=== PATIENT | female | born 1950 | race Caucasian/White ===

== ENCOUNTER → 2020-08-08 | Outpatient (CLI) | payer MEDICARE, OTHER ==
[~2020-08-08] MED LIST: ADULT LOW DOSE81 MG PO; ATORVASTATIN CA40 MG PO; CARVEDILOL12.5 MG PO; COREG 3.125M3.125 MG PO; COUMADIN7.5 MG PO; COZAAR 25MG TAB25 MG PO; ECOTRIN81 MG PO; FERROUS SULFAT325 M2 PO; FUROSEMIDE40 MG PO; HYDROXYZINE HCL25 MG PO; IRON18 MG PO; ISOSORBIDE MONO30 MG PO; LASIX20 MG PO; LIPITOR TAB 2020 MG PO; LOPRESSOR 50 MG50 MG PO; MOBIC7.5 MG PO; NITROGLYCERIN0.4 MG SL; NITROSTAT0.4 MG SL; RANOLAZINE ER1000 MG PO; SERTRALINE HCL100 MG PO; THERAGRAN TAB1 EA PO
[2020-08-08 12:32] LABS: HEMOGLOBIN 8.4 gm/dl (12.3-15.3); RED BLOOD COUNT 3.27 M/UL (4.00-5.10)
== END ==
LOC: LAB 11:45
PROVIDERS: Internal Medicine Cardiovascular Disease
DX: R94.39 Abnormal result of other cardiovascular function study (principal); I20.9 Angina pectoris, unspecified; I50.32 Chronic diastolic (congestive) heart failure; Z95.2 Presence of prosthetic heart valve; Z98.890 Other specified postprocedural states; Z20.822 Contact with and (suspected) exposure to COVID-19
CPT/HCPCS: 36415; 71046; 80048; 85025; U0003

== ENCOUNTER → 2020-08-12 | Outpatient (CLI) | payer MEDICARE, OTHER | LOC: CATH 08:32 | DX: I20.8 Other forms of angina pectoris (principal); I38 Endocarditis, valve unspecified; I49.5 Sick sinus syndrome; I11.0 Hypertensive heart disease with heart failure; I50.9 Heart failure, unspecified; Z98.890 Other specified postprocedural states; Z88.6 Allergy status to analgesic agent; Z88.5 Allergy status to narcotic agent; Z79.82 Long term (current) use of aspirin; Z79.899 Other long term (current) drug therapy | CPT/HCPCS: 99152; 99153; C1751; C1769; J1644; J2250; J7030; Q9965 ==

== ENCOUNTER → 2020-09-12 | Day surgery (SDC) | payer MEDICARE, OTHER | END | disposition home or self-care (01) | LOC: OR 06:25 | DX: K29.50 Unspecified chronic gastritis without bleeding (principal); K31.9 Disease of stomach and duodenum, unspecified; D64.9 Anemia, unspecified; K44.9 Diaphragmatic hernia without obstruction or gangrene; F41.9 Anxiety disorder, unspecified; Z95.0 Presence of cardiac pacemaker; K57.30 Diverticulosis of large intestine without perforation or abscess without bleeding; I11.0 Hypertensive heart disease with heart failure; I50.42 Chronic combined systolic (congestive) and diastolic (congestive) heart failure; E78.5 Hyperlipidemia, unspecified; Z95.3 Presence of xenogenic heart valve; Z88.8 Allergy status to other drugs, medicaments and biological substances; I20.9 Angina pectoris, unspecified; Z79.82 Long term (current) use of aspirin; Z98.51 Tubal ligation status; Z20.822 Contact with and (suspected) exposure to COVID-19; Z95.5 Presence of coronary angioplasty implant and graft; E61.1 Iron deficiency | CPT/HCPCS: J2704; J7030 ==

== ENCOUNTER → 2021-01-06 | Outpatient (CLI) | payer MEDICARE, OTHER | LOC: CT 13:00 | DX: R93.422 Abnormal radiologic findings on diagnostic imaging of left kidney (principal); N28.1 Cyst of kidney, acquired | CPT/HCPCS: 74170; Q9967 ==

== ENCOUNTER → 2021-07-14 | Outpatient (CLI) | payer MEDICARE, OTHER | LOC: HEART 5 14:59 | DX: I20.9 Angina pectoris, unspecified (principal); R07.9 Chest pain, unspecified; R06.02 Shortness of breath; R60.9 Edema, unspecified; I50.9 Heart failure, unspecified; I27.20 Pulmonary hypertension, unspecified; Z95.2 Presence of prosthetic heart valve | CPT/HCPCS: 93306 ==

== ENCOUNTER → 2021-10-26 | Outpatient (CLI) | payer MEDICARE, OTHER ==
[2021-10-26 10:06] LABS: RED BLOOD COUNT 2.48 M/UL (4.00-5.10); WHITE BLOOD COUNT 2.5 K/UL (4.5-11.0)
[2021-10-26 10:36] LABS: HEMOGLOBIN 6.8 gm/dl (12.3-15.3)
[2021-10-30 00:07] LABS: THROMBIN TIME 18.9 sec (0.0-23.0)
== END ==
LOC: US 09:00
PROVIDERS: Internal Medicine
DX: D64.9 Anemia, unspecified (principal); K80.20 Calculus of gallbladder without cholecystitis without obstruction; K65.8 Other peritonitis
CPT/HCPCS: 36415; 76705; 82728; 83540; 83550; 85025; 85610; 85670

== ENCOUNTER → 2021-10-28 | Outpatient (CLI) | payer MEDICARE, OTHER ==
[~2021-10-28] VITALS: Ht 160 cm; Wt 77.1 kg
[2021-10-28 10:12] LABS: RED BLOOD COUNT 2.58 M/UL (4.00-5.10)
[2021-10-28 10:38] LABS: WHITE BLOOD COUNT 4.1 K/UL (4.5-11.0)
[2021-10-28 10:39] LABS: HEMOGLOBIN 6.7 gm/dl (12.3-15.3)
== END ==
LOC: OPSV 10-27 09:00
PROVIDERS: Nurse Practitioner Family
DX: D64.9 Anemia, unspecified (principal)
CPT/HCPCS: 36415; 36430; 85027; 86850; 86900; 86901; 86920; J7050; P9016

== ENCOUNTER → 2021-12-03 | Day surgery (SDC) | payer MEDICARE, OTHER ==
[~2021-12-03] MED LIST changes: -FUROSEMIDE40 MG PO; +HYDROCODON-ACE1 EAC4 PO; -ISOSORBIDE MONO30 MG PO; +ISOSORBIDE MONO60 MG PO; +METOPROLOL TART25 MG PO
[2021-12-03 07:15] LABS: HEMOGLOBIN 8.5 gm/dl (12.3-15.3); RED BLOOD COUNT 2.92 M/UL (4.00-5.10); WHITE BLOOD COUNT 5.1 K/UL (4.5-11.0)
== END | disposition home or self-care (01) ==
LOC: OR 06:18
PROVIDERS: Surgery
DX: K80.10 Calculus of gallbladder with chronic cholecystitis without obstruction (principal); I50.42 Chronic combined systolic (congestive) and diastolic (congestive) heart failure; E78.5 Hyperlipidemia, unspecified; Z86.73 Personal history of transient ischemic attack (TIA), and cerebral infarction without residual deficits; Z88.6 Allergy status to analgesic agent; Z88.8 Allergy status to other drugs, medicaments and biological substances; Z79.82 Long term (current) use of aspirin
CPT/HCPCS: 36415; 85025; 86850; 86900; 86901; C1729; J0690; J1100; J2001; J2405; J2704; J3010

== ENCOUNTER 2021-12-19 19:22 | Inpatient (IN) | payer MEDICARE, OTHER ==
[~2021-12-19] VITALS: Ht 160 cm; Wt 83.6 kg
[~2021-12-19 19:22] MED LIST changes: -IRON18 MG PO; +IRON325 M1 PO
[2021-12-19 23:21] LABS: HEMOGLOBIN 8.5 gm/dl (12.3-15.3); RED BLOOD COUNT 2.95 M/UL (4.00-5.10); WHITE BLOOD COUNT 5.1 K/UL (4.5-11.0)
[2021-12-19 23:49] LABS: BUN/CREATININE RATIO 24 (0-10)
[2021-12-20] MEDS ORDERED: HYDROCODON-ACE1 EAC4 PO (10:11)
[2021-12-21 01:57] LABS: RED BLOOD COUNT 2.38 M/UL (4.00-5.10); WHITE BLOOD COUNT 3.5 K/UL (4.5-11.0)
[2021-12-21 02:13] LABS: BUN/CREATININE RATIO 21 (0-10)
[2021-12-21 16:27] LABS: HEMOGLOBIN 6.9 gm/dl (12.3-15.3)
[2021-12-22 01:58] LABS: HEMOGLOBIN 7.8 gm/dl (12.3-15.3); WHITE BLOOD COUNT 4.1 K/UL (4.5-11.0)
[2021-12-22 02:08] LABS: RED BLOOD COUNT 2.63 M/UL (4.00-5.10)
[2021-12-22 02:22] LABS: BUN/CREATININE RATIO 23 (0-10)
--- NOTE | 2021-12-22 15:25 | NUR ---
PATIENT FOUND LYING IN FLOOR BESIDE BED BY DR. ISABEL MIN. PT STATES SHE FELT DIZZY WHILE SITTING ON SIDE OF BED AND SLID OFF INTO FLOOR. NO C/O PAIN. 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 PT ABLE TO RETURN TO STANDING POSITION WITH ASSISTANCE EASILY. PT STATES SHE HAS BEEN TREATED FOR DIZZINESS BEFORE BY NEUROLOGIST DR. ISABEL MIN. PT LYING IN BED. PT INSTRUCTED NOT TO GET UP TO SIDE OF BED OR OUT OF BED WITHOUT ASSISTANCE. BED ALARM ON.
[2021-12-23 02:11] LABS: HEMOGLOBIN 7.5 gm/dl (12.3-15.3); RED BLOOD COUNT 2.62 M/UL (4.00-5.10); WHITE BLOOD COUNT 4.2 K/UL (4.5-11.0)
[2021-12-23 02:31] LABS: BUN/CREATININE RATIO 25 (0-10)
[2021-12-24 02:10] LABS: HEMOGLOBIN 7.6 gm/dl (12.3-15.3); RED BLOOD COUNT 2.65 M/UL (4.00-5.10); WHITE BLOOD COUNT 4.5 K/UL (4.5-11.0)
[2021-12-24 02:31] LABS: BUN/CREATININE RATIO 24 (0-10)
[2021-12-24] MEDS ORDERED: LISINOPRIL5 MG PO (09:07)
[2021-12-24] MEDS ORDERED: SERTRALINE HCL50 MG PO (09:07)
[2021-12-24] MEDS ORDERED: ISOSORBIDE MONO30 MG PO (09:07)
[2021-12-24] MEDS ORDERED: ALDACTONE 25MG25 MG PO (09:07)
[2021-12-24] MEDS ORDERED: RANEXA500 MG PO (09:07)
[2021-12-24] MEDS ORDERED: FUROSEMIDE40 MG PO (09:07)
[2021-12-24] MEDS ORDERED: THERAGRAN M TAB1 EA PO (09:07)
== END 2021-12-24 12:20 | disposition home or self-care (01) | DRG 291 ==
LOC: ER1 19:22 → CDU 12-20 01:47 → PROG CARE 12-20 01:47
PROVIDERS: Internal Medicine; Internal Medicine Infectious Disease; Student in an Organized Health Care Education/Training Program; ADMIT Internal Medicine
PROC: 30233N1 Transfusion of Nonautologous Red Blood Cells into Peripheral Vein, Percutaneous Approach (ICD-10-PCS; principal; 2021-12-21)
DX: I11.0 Hypertensive heart disease with heart failure (principal); I50.23 Acute on chronic systolic (congestive) heart failure; D50.9 Iron deficiency anemia, unspecified; E87.6 Hypokalemia; I48.0 Paroxysmal atrial fibrillation; Z20.822 Contact with and (suspected) exposure to COVID-19; Z95.2 Presence of prosthetic heart valve; Z90.710 Acquired absence of both cervix and uterus; Z90.49 Acquired absence of other specified parts of digestive tract; I42.8 Other cardiomyopathies; Z95.0 Presence of cardiac pacemaker; I27.20 Pulmonary hypertension, unspecified
CPT/HCPCS: 36415; 71045; 80048; 80053; 80061; 82550; 82553; 82607; 82728; 83540; 83550; 83735; 83880; 84443; 84484; 85014; 85018; 85025; 85379; 85610; 85730; 86850; 86900; 86901; 86920; 93005; 96374; 99285; J1650; J1756; J1940; J7030; J7050; P9016; Q9967; U0002